=== PATIENT | female | born 1935 | race African-American/Black ===

== ENCOUNTER 2021-07-04 17:26 | Inpatient (IN) ==
[2021-07-04 20:26] LABS: ABG Base Excess -10.2 MMOL/L (-2.5-2.5); ABG HCO3 16.4 MMOL/L (20-26); ABG Oxygen Saturation 97.2 % (95-100); ABG PCO2 21.5 MM HG (35-48); ABG PH 7.393 (7.35-7.45); ABG TCO2 11.7 MMOL/L (23-27)
[2021-07-04] MEDS ORDERED: SODIUM BICARBONATE 50 MEQ/50 ML VIAL IV ONE (20:45)
[2021-07-04] MEDS ORDERED: PHENYLEPHRINE DRIP 40 MG/250 ML PREMIX IV PRN (20:46)
[2021-07-04] MEDS ORDERED: MORPHINE 2 MG/1 ML SYRINGE IV PRN (20:46)
[2021-07-04] MEDS ORDERED: ONDANSETRON 4 MG/2 ML VIAL IV PRN (20:46)
[2021-07-04] MEDS ORDERED: ALBUTEROL 2.5 MG/3 ML NEB RESP TX PRN (20:46)
[2021-07-04] MEDS ORDERED: SODIUM BICARB INJ 150 MEQ in DEXTROSE 5% 1,000 ML IV SCH (21:00)
[2021-07-04] MEDS ORDERED: DEXTROSE 50% 25 GM/50 ML SYRINGE IV PRN (21:06)
[2021-07-04] MEDS ORDERED: GLUCAGON 1 MG VIAL IM PRN (21:06)
[2021-07-04] MEDS: PANTOPRAZOLE 40 MG VIAL IV SCH (21:57)
[2021-07-04] MEDS: HYDROCORTISONE 100 MG VIAL IV SCH (21:57)
[2021-07-04] MEDS: MEROPENEM 500 MG in SODIUM CHLORIDE 0.9% 100 ML IV SCH (21:57)
[2021-07-04] MEDS ORDERED: INSULIN LISPRO 100 UNIT/ML SUBCUT SCH (22:00)
[2021-07-04] MEDS: INSULIN NPH 100 UNIT/ML SUBCUT SCH (22:12)
[2021-07-04] MEDS: AMPICILLIN INJ 500 MG in SODIUM CHLORIDE 0.9% 100 ML IV SCH (22:40)
[2021-07-04] MEDS ORDERED: LEVOFLOXACIN INJ 750 MG/150 ML PREMIX IV SCH (23:00)
[2021-07-05] MEDS: AMPICILLIN INJ 500 MG in SODIUM CHLORIDE 0.9% 100 ML IV SCH ×4 (03:18→21:12)
[2021-07-05] MEDS: INSULIN LISPRO 100 UNIT/ML SUBCUT SCH ×5 (03:47→19:43)
[2021-07-05] MEDS: HYDROCORTISONE 100 MG VIAL IV SCH ×3 (05:20→20:33)
[2021-07-05] MEDS: MEROPENEM 500 MG in SODIUM CHLORIDE 0.9% 100 ML IV SCH ×3 (05:20→20:34)
[2021-07-05 05:22] LABS: Lactic Acid 3.8 MMOL/L (0.4-2.0)
[2021-07-05 05:25] LABS: Alanine Aminotransferase 38 U/L (13-56); Albumin 1.6 G/DL (3.4-5.0); Alkaline Phosphatase 79 U/L (45-117); Aspartate Amino Transferase 46 U/L (0-37); Blood Urea Nitrogen 79 MG/DL (7-18); Calcium 7.5 MG/DL (8.5-10.1); Carbon Dioxide 30 MMOL/L (21-32); Estimated Glom Filtration Rate 10 ML/MIN; Glucose 441 MG/DL (74-106); Osmolality,Calculated 334.4 MOS/KG (273-304); Potassium 3.6 MMOL/L (3.5-5.1); Sodium 147 MMOL/L (136-145); Thyroid Stimulating Hormone 0.137 uIU/ml (0.358-3.74); Total Protein 5.1 G/DL (6.4-8.2)
[2021-07-05 05:42] LABS: Basophils # 0.1 10*3/uL (0.0-0.2); Basophils % 0.7 % (0.0-0.8); Hematocrit 29.3 VOL% (35.7-47.0); Immature Granulocytes % 12.6 %; Immature Granulocytes Absolute 1.89 #; Lymphocytes # 0.3 10*3/uL (1.4-4.0); Lymphocytes % 2.3 % (21.3-54.2); Mean Corpuscular HGB Conc 34.1 GM/DL (32-36); Mean Corpuscular Volume 92.7 FL (87-102); Mean Platelet Volume 10.8 FL (9.6-12.0); Monocytes % 2.9 % (1.7-12.7); Neutrophils % 81.5 % (38.7-73.9); Platelet Count 58 T/CUMM (130-400); Red Blood Count 3.16 MC/CUMM (3.8-5.5); Red Cell Distribution Width 14.7 % (9.3-17.3); White Blood Count 15.1 T/CUMM (4-12)
[2021-07-05 05:49] LABS: Band Neutrophils 43 % (0-10); Lymphocytes 2 % (20-55); Metamyelocytes 15 %; Myelocytes 2 %; Platelet Estimate Decreased; Segmented Neutrophils 37 % (50-85); Total Cells Counted 100
[2021-07-05 05:50] LABS: Anisocytosis 1+; Macrocytosis 1+
[2021-07-05 06:31] LABS: Ammonia < 10 UMOL/L (11-32)
[2021-07-05 09:07] LABS: Calcium 8.4 MG/DL (8.5-10.1); Osmolality,Calculated 319.1 MOS/KG (273-304); Potassium 3.9 MMOL/L (3.5-5.1)
[2021-07-05] MEDS: SODIUM CHLORIDE 0.45% 1,000 ML IV SCH ×2 (09:35→19:55)
[2021-07-05] MEDS: ENOXAPARIN 30 MG/0.3 ML SYRINGE SUBCUT SCH (09:35)
[2021-07-05] MEDS: INSULIN NPH 100 UNIT/ML SUBCUT SCH (16:21)
[2021-07-05] MEDS: PANTOPRAZOLE 40 MG VIAL IV SCH (20:33)
[2021-07-06] MEDS: INSULIN LISPRO 100 UNIT/ML SUBCUT SCH ×7 (00:07→23:23)
[2021-07-06 02:16] LABS: Basophils # 0.1 10*3/uL (0.0-0.2); Basophils % 0.3 % (0.0-0.8); Hematocrit 36.3 VOL% (35.7-47.0); Hemoglobin 11.8 GM/DL (12.0-16.0); Immature Granulocytes % 0.4 %; Immature Granulocytes Absolute 0.09 #; Lymphocytes # 0.4 10*3/uL (1.4-4.0); Mean Corpuscular HGB Conc 32.5 GM/DL (32-36); Mean Platelet Volume 10.7 FL (9.6-12.0); Monocytes % 1.6 % (1.7-12.7); Neutrophils % 95.7 % (38.7-73.9); Red Cell Distribution Width 14.7 % (9.3-17.3)
[2021-07-06 02:17] LABS: Red Blood Count 3.82 MC/CUMM (3.8-5.5); White Blood Count 21.3 T/CUMM (4-12)
[2021-07-06 02:18] LABS: Platelet Count 45 T/CUMM (130-400)
[2021-07-06 02:34] LABS: Albumin 1.9 G/DL (3.4-5.0); Bilirubin,Total 0.6 MG/DL (0.20-1.00); Calcium 8.3 MG/DL (8.5-10.1); Osmolality,Calculated 307.3 MOS/KG (273-304); Potassium 3.7 MMOL/L (3.5-5.1); Total Protein 5.9 G/DL (6.4-8.2)
[2021-07-06 02:41] LABS: Band Neutrophils 9 % (0-10); Lymphocytes 2 % (20-55); Metamyelocytes 3 %; Segmented Neutrophils 85 % (50-85)
[2021-07-06 02:43] LABS: Platelet Estimate Decreased; Total Cells Counted 100
[2021-07-06] MEDS: SODIUM CHLORIDE 0.45% 1,000 ML IV SCH (03:55)
[2021-07-06] MEDS: MEROPENEM 500 MG in SODIUM CHLORIDE 0.9% 100 ML IV SCH ×3 (05:05→21:27)
[2021-07-06] MEDS: AMPICILLIN INJ 500 MG in SODIUM CHLORIDE 0.9% 100 ML IV SCH (05:05)
[2021-07-06] MEDS: HYDROCORTISONE 100 MG VIAL IV SCH ×3 (05:06→21:27)
[2021-07-06] MEDS: ENOXAPARIN 30 MG/0.3 ML SYRINGE SUBCUT SCH (08:57)
[2021-07-06] MEDS: SODIUM CHLORIDE 23.4% CONC INJ 38.5 MEQ in STERILE WATER INJ 1,000 ML IV SCH ×2 (09:30→19:36)
[2021-07-06] MEDS: INSULIN NPH 100 UNIT/ML SUBCUT SCH (16:16)
[2021-07-06] MEDS: PANTOPRAZOLE 40 MG VIAL IV SCH (21:27)
[2021-07-07] MEDS: INSULIN LISPRO 100 UNIT/ML SUBCUT SCH ×5 (03:25→20:29)
[2021-07-07 04:57] LABS: Basophils # 0.2 10*3/uL (0.0-0.2); Basophils % 0.8 % (0.0-0.8); Eosinophils % 0.1 % (0.00-10.9); Hematocrit 35.6 VOL% (35.7-47.0); Hemoglobin 12.7 GM/DL (12.0-16.0); Immature Granulocytes % 1.2 %; Immature Granulocytes Absolute 0.26 #; Lymphocytes # 0.7 10*3/uL (1.4-4.0); Lymphocytes % 3.3 % (21.3-54.2); Mean Corpuscular HGB Conc 35.7 GM/DL (32-36); Mean Corpuscular Volume 93.9 FL (87-102); Neutrophils % 91.6 % (38.7-73.9); Red Blood Count 3.79 MC/CUMM (3.8-5.5); Red Cell Distribution Width 14.6 % (9.3-17.3); White Blood Count 21.2 T/CUMM (4-12)
[2021-07-07 05:01] LABS: Platelet Count 38 T/CUMM (130-400)
[2021-07-07] MEDS: HYDROCORTISONE 100 MG VIAL IV SCH (05:06)
[2021-07-07] MEDS: MEROPENEM 500 MG in SODIUM CHLORIDE 0.9% 100 ML IV SCH ×3 (05:06→20:31)
[2021-07-07 05:18] LABS: Band Neutrophils 4 % (0-10); Lymphocytes 3 % (20-55); Platelet Estimate Decreased; Segmented Neutrophils 90 % (50-85); Total Cells Counted 100
[2021-07-07] MEDS: SODIUM CHLORIDE 23.4% CONC INJ 38.5 MEQ in STERILE WATER INJ 1,000 ML IV SCH ×2 (05:59→15:54)
[2021-07-07 06:20] LABS: Bilirubin,Total 0.9 MG/DL (0.20-1.00); Calcium 8.9 MG/DL (8.5-10.1); Osmolality,Calculated 296.1 MOS/KG (273-304); Potassium 4.1 MMOL/L (3.5-5.1)
[2021-07-07] MEDS: ENOXAPARIN 30 MG/0.3 ML SYRINGE SUBCUT SCH (08:43)
[2021-07-07] MEDS ORDERED: HYDROCORTISONE 100 MG VIAL IV SCH (13:00)
[2021-07-07] MEDS: INSULIN NPH 100 UNIT/ML SUBCUT SCH (16:48)
[2021-07-07] MEDS: PANTOPRAZOLE 40 MG VIAL IV SCH (20:31)
[2021-07-08] MEDS: INSULIN LISPRO 100 UNIT/ML SUBCUT SCH ×6 (00:46→20:56)
[2021-07-08] MEDS: SODIUM CHLORIDE 23.4% CONC INJ 38.5 MEQ in STERILE WATER INJ 1,000 ML IV SCH ×3 (01:12→22:29)
[2021-07-08] MEDS: MEROPENEM 500 MG in SODIUM CHLORIDE 0.9% 100 ML IV SCH ×2 (04:32→15:07)
[2021-07-08 05:15] LABS: Basophils % 0.2 % (0.0-0.8); Hematocrit 32.9 VOL% (35.7-47.0); Hemoglobin 11.5 GM/DL (12.0-16.0); Immature Granulocytes % 1.8 %; Immature Granulocytes Absolute 0.32 #; Lymphocytes # 1.4 10*3/uL (1.4-4.0); Lymphocytes % 7.7 % (21.3-54.2); Mean Corpuscular Volume 93.7 FL (87-102); Monocytes % 6.1 % (1.7-12.7); NRBC # 0.02 10*3/uL; Neutrophils % 84.2 % (38.7-73.9); Red Blood Count 3.51 MC/CUMM (3.8-5.5); Red Cell Distribution Width 14.6 % (9.3-17.3); White Blood Count 17.6 T/CUMM (4-12)
[2021-07-08 05:16] LABS: Albumin 1.5 G/DL (3.4-5.0); Bilirubin,Total 0.7 MG/DL (0.20-1.00); Calcium 8.5 MG/DL (8.5-10.1); Osmolality,Calculated 295.3 MOS/KG (273-304); Platelet Count 36 T/CUMM (130-400); Potassium 3.6 MMOL/L (3.5-5.1); Total Protein 5.1 G/DL (6.4-8.2)
[2021-07-08 06:56] LABS: Band Neutrophils 3 % (0-10); Lymphocytes 9 % (20-55); Metamyelocytes 1 %; Segmented Neutrophils 87 % (50-85); Total Cells Counted 100
[2021-07-08 06:57] LABS: Atypical Lymphocytes Few; Platelet Estimate Decreased
[2021-07-08] MEDS: predniSONE 20 MG TABLET PO SCH (08:47)
[2021-07-08] MEDS: cefTRIAXone 2,000 MG in SODIUM CHLORIDE 0.9% 100 ML IV SCH (16:07)
[2021-07-08] MEDS: INSULIN NPH 100 UNIT/ML SUBCUT SCH (17:20)
[2021-07-08] MEDS: TOLTERODINE 2 MG TABLET PO SCH (20:57)
[2021-07-08] MEDS: PANTOPRAZOLE 40 MG VIAL IV SCH (20:57)
[2021-07-09] MEDS: INSULIN LISPRO 100 UNIT/ML SUBCUT SCH ×6 (00:29→20:54)
[2021-07-09 03:34] LABS: Basophils % 0.2 % (0.0-0.8); Eosinophils % 0.1 % (0.00-10.9); Hematocrit 32.5 VOL% (35.7-47.0); Hemoglobin 11.5 GM/DL (12.0-16.0); Immature Granulocytes Absolute 0.47 #; Lymphocytes # 2.1 10*3/uL (1.4-4.0); Lymphocytes % 13.3 % (21.3-54.2); Mean Corpuscular HGB Conc 35.4 GM/DL (32-36); Mean Corpuscular Volume 97.6 FL (87-102); Monocytes % 8.8 % (1.7-12.7); Neutrophils % 74.6 % (38.7-73.9); Red Blood Count 3.33 MC/CUMM (3.8-5.5); Red Cell Distribution Width 16.1 % (9.3-17.3); White Blood Count 15.8 T/CUMM (4-12)
[2021-07-09 03:45] LABS: Albumin 1.5 G/DL (3.4-5.0); Calcium 8.4 MG/DL (8.5-10.1); Osmolality,Calculated 283.5 MOS/KG (273-304); Potassium 4.1 MMOL/L (3.5-5.1); Total Protein 5.2 G/DL (6.4-8.2)
[2021-07-09 03:45] LABS: Platelet Count 30 T/CUMM (130-400)
[2021-07-09] MEDS: SODIUM CHLORIDE 23.4% CONC INJ 38.5 MEQ in STERILE WATER INJ 1,000 ML IV SCH ×2 (08:32→18:06)
[2021-07-09] MEDS: TOLTERODINE 2 MG TABLET PO SCH ×2 (08:33→20:53)
[2021-07-09] MEDS: predniSONE 20 MG TABLET PO SCH (08:33)
[2021-07-09 10:12] LABS: Lymphocytes 10 % (20-55); Macrocytosis Slight; Metamyelocytes 2 %; Platelet Estimate Decreased; Segmented Neutrophils 85 % (50-85); Total Cells Counted 100
[2021-07-09] MEDS: cefTRIAXone 2,000 MG in SODIUM CHLORIDE 0.9% 100 ML IV SCH (16:55)
[2021-07-09] MEDS: INSULIN NPH 100 UNIT/ML SUBCUT SCH (16:55)
[2021-07-09] MEDS: PANTOPRAZOLE 40 MG VIAL IV SCH (20:57)
[2021-07-10] MEDS: SODIUM CHLORIDE 23.4% CONC INJ 38.5 MEQ in STERILE WATER INJ 1,000 ML IV SCH ×4 (03:23→22:44)
[2021-07-10 06:32] LABS: Basophils # 0.1 10*3/uL (0.0-0.2); Basophils % 0.2 % (0.0-0.8); Eosinophils # 0.1 10*3/uL (0.0-0.87); Eosinophils % 0.3 % (0.00-10.9); Hematocrit 31.1 VOL% (35.7-47.0); Hemoglobin 10.5 GM/DL (12.0-16.0); Immature Granulocytes % 5.2 %; Immature Granulocytes Absolute 1.26 #; Lymphocytes # 2.7 10*3/uL (1.4-4.0); Lymphocytes % 11.1 % (21.3-54.2); Mean Corpuscular HGB Conc 33.8 GM/DL (32-36); Mean Corpuscular Volume 94.2 FL (87-102); Mean Platelet Volume 14.6 FL (9.6-12.0); Monocytes % 7.6 % (1.7-12.7); Neutrophils % 75.6 % (38.7-73.9); Platelet Count 42 T/CUMM (130-400); Red Cell Distribution Width 14.8 % (9.3-17.3); White Blood Count 24.3 T/CUMM (4-12)
[2021-07-10 06:54] LABS: Albumin 1.4 G/DL (3.4-5.0); Bilirubin,Total 0.8 MG/DL (0.20-1.00); Calcium 8.3 MG/DL (8.5-10.1); Osmolality,Calculated 283.5 MOS/KG (273-304); Potassium 3.8 MMOL/L (3.5-5.1); Total Protein 4.9 G/DL (6.4-8.2)
[2021-07-10 06:57] LABS: Band Neutrophils 5 % (0-10); Hypochromia 1+; Lymphocytes 10 % (20-55); Segmented Neutrophils 77 % (50-85); Total Cells Counted 100
[2021-07-10 06:58] LABS: Microcytosis Slight; Platelet Estimate Decreased; Target Cells Slight
[2021-07-10] MEDS: INSULIN LISPRO 100 UNIT/ML SUBCUT SCH ×4 (07:11→20:35)
[2021-07-10] MEDS: predniSONE 20 MG TABLET PO SCH (08:09)
[2021-07-10] MEDS: TOLTERODINE 2 MG TABLET PO SCH ×2 (08:09→20:36)
[2021-07-10] MEDS: PANTOPRAZOLE 40 MG TABLET PO SCH (09:56)
[2021-07-10] MEDS: cefTRIAXone 2,000 MG in SODIUM CHLORIDE 0.9% 100 ML IV SCH (16:03)
[2021-07-10] MEDS: INSULIN NPH 100 UNIT/ML SUBCUT SCH (17:36)
[2021-07-11] MEDS: SODIUM CHLORIDE 23.4% CONC INJ 38.5 MEQ in STERILE WATER INJ 1,000 ML IV SCH ×5 (03:14→22:12)
[2021-07-11 05:04] LABS: Basophils % 0.2 % (0.0-0.8); Eosinophils # 0.1 10*3/uL (0.0-0.87); Eosinophils % 0.3 % (0.00-10.9); Hematocrit 26.9 VOL% (35.7-47.0); Hemoglobin 9.2 GM/DL (12.0-16.0); Immature Granulocytes % 5.8 %; Immature Granulocytes Absolute 1.35 #; Lymphocytes # 2.9 10*3/uL (1.4-4.0); Lymphocytes % 12.3 % (21.3-54.2); Mean Corpuscular HGB Conc 34.2 GM/DL (32-36); Mean Corpuscular Volume 91.5 FL (87-102); Mean Platelet Volume 12.9 FL (9.6-12.0); Monocytes % 5.2 % (1.7-12.7); Neutrophils % 76.2 % (38.7-73.9); Platelet Count 79 T/CUMM (130-400); Red Blood Count 2.94 MC/CUMM (3.8-5.5); Red Cell Distribution Width 14.7 % (9.3-17.3); White Blood Count 23.4 T/CUMM (4-12)
[2021-07-11 05:29] LABS: Band Neutrophils 2 % (0-10); Hypochromia 1+; Lymphocytes 17 % (20-55); Microcytosis 1+; Platelet Estimate Decreased; Segmented Neutrophils 77 % (50-85); Total Cells Counted 100
[2021-07-11 05:30] LABS: Albumin 1.3 G/DL (3.4-5.0); Bilirubin,Total 1.5 MG/DL (0.20-1.00); Calcium 7.8 MG/DL (8.5-10.1); Osmolality,Calculated 286.7 MOS/KG (273-304); Potassium 3.8 MMOL/L (3.5-5.1); Total Protein 4.8 G/DL (6.4-8.2)
[2021-07-11] MEDS: INSULIN LISPRO 100 UNIT/ML SUBCUT SCH ×4 (08:40→20:49)
[2021-07-11] MEDS: predniSONE 20 MG TABLET PO SCH (08:41)
[2021-07-11] MEDS: TOLTERODINE 2 MG TABLET PO SCH ×2 (08:41→20:52)
[2021-07-11] MEDS: PANTOPRAZOLE 40 MG TABLET PO SCH (08:41)
[2021-07-11] MEDS: cefTRIAXone 2,000 MG in SODIUM CHLORIDE 0.9% 100 ML IV SCH (16:48)
[2021-07-11] MEDS: INSULIN NPH 100 UNIT/ML SUBCUT SCH (16:56)
[2021-07-12 04:28] LABS: Basophils # 0.1 10*3/uL (0.0-0.2); Basophils % 0.2 % (0.0-0.8); Eosinophils # 0.1 10*3/uL (0.0-0.87); Eosinophils % 0.4 % (0.00-10.9); Hematocrit 26.6 VOL% (35.7-47.0); Hemoglobin 8.9 GM/DL (12.0-16.0); Lymphocytes # 3.8 10*3/uL (1.4-4.0); Lymphocytes % 16.7 % (21.3-54.2); Mean Corpuscular HGB Conc 33.5 GM/DL (32-36); Mean Corpuscular Volume 92.7 FL (87-102); Mean Platelet Volume 12.2 FL (9.6-12.0); Monocytes % 6.3 % (1.7-12.7); Neutrophils % 69.4 % (38.7-73.9); Platelet Count 169 T/CUMM (130-400); Red Blood Count 2.87 MC/CUMM (3.8-5.5); Red Cell Distribution Width 15.2 % (9.3-17.3); White Blood Count 22.8 T/CUMM (4-12)
[2021-07-12 04:47] LABS: Band Neutrophils 1 % (0-10); Hypochromia 1+; Lymphocytes 17 % (20-55); Microcytosis 1+; Segmented Neutrophils 76 % (50-85); Total Cells Counted 100
[2021-07-12 04:48] LABS: Polychromasia Slight; Target Cells Slight
[2021-07-12 04:50] LABS: Albumin 1.5 G/DL (3.4-5.0); Bilirubin,Total 0.4 MG/DL (0.20-1.00); Calcium 8.3 MG/DL (8.5-10.1); Osmolality,Calculated 283.8 MOS/KG (273-304); Potassium 4.1 MMOL/L (3.5-5.1); Total Protein 5.1 G/DL (6.4-8.2)
[2021-07-12] MEDS: SODIUM CHLORIDE 23.4% CONC INJ 38.5 MEQ in STERILE WATER INJ 1,000 ML IV SCH (05:00)
[2021-07-12] MEDS: INSULIN LISPRO 100 UNIT/ML SUBCUT SCH ×4 (07:48→20:34)
[2021-07-12] MEDS: PANTOPRAZOLE 40 MG TABLET PO SCH (08:22)
[2021-07-12] MEDS: TOLTERODINE 2 MG TABLET PO SCH ×2 (08:22→20:34)
[2021-07-12] MEDS: ENOXAPARIN 40 MG/0.4 ML SYRINGE SUBCUT SCH (08:26)
[2021-07-12] MEDS: INSULIN NPH 100 UNIT/ML SUBCUT SCH (16:24)
[2021-07-12] MEDS: cefTRIAXone 2,000 MG in SODIUM CHLORIDE 0.9% 100 ML IV SCH (16:24)
[2021-07-13 05:21] LABS: Basophils # 0.1 10*3/uL (0.0-0.2); Basophils % 0.2 % (0.0-0.8); Eosinophils % 0.1 % (0.00-10.9); Hematocrit 27.9 VOL% (35.7-47.0); Hemoglobin 9.2 GM/DL (12.0-16.0); Immature Granulocytes % 6.1 %; Immature Granulocytes Absolute 1.55 #; Lymphocytes # 2.3 10*3/uL (1.4-4.0); Lymphocytes % 9.1 % (21.3-54.2); Mean Corpuscular Volume 93.9 FL (87-102); Mean Platelet Volume 11.2 FL (9.6-12.0); Monocytes % 6.8 % (1.7-12.7); Neutrophils % 77.7 % (38.7-73.9); Platelet Count 214 T/CUMM (130-400); Red Blood Count 2.97 MC/CUMM (3.8-5.5); Red Cell Distribution Width 15.4 % (9.3-17.3); White Blood Count 25.5 T/CUMM (4-12)
[2021-07-13 05:45] LABS: Albumin 1.6 G/DL (3.4-5.0); Bilirubin,Total 1.4 MG/DL (0.20-1.00); Calcium 8.3 MG/DL (8.5-10.1); Potassium 5.3 MMOL/L (3.5-5.1); Total Protein 5.6 G/DL (6.4-8.2)
[2021-07-13 05:55] LABS: Band Neutrophils 1 % (0-10); Hypochromia 1+; Lymphocytes 7 % (20-55); Microcytosis 1+; Platelet Estimate Adequate; Segmented Neutrophils 89 % (50-85); Total Cells Counted 100
[2021-07-13] MEDS: ENOXAPARIN 40 MG/0.4 ML SYRINGE SUBCUT SCH (09:22)
[2021-07-13] MEDS: TOLTERODINE 2 MG TABLET PO SCH ×2 (09:23→21:16)
[2021-07-13] MEDS: PANTOPRAZOLE 40 MG TABLET PO SCH (09:23)
[2021-07-13] MEDS: INSULIN LISPRO 100 UNIT/ML SUBCUT SCH ×4 (09:27→21:16)
[2021-07-13] MEDS ORDERED: SODIUM POLYSTYRENE SULFATE 15 GM/60 ML BOTTLE PO STA (13:06)
[2021-07-13] MEDS: INSULIN NPH 100 UNIT/ML SUBCUT SCH (16:22)
[2021-07-13] MEDS: cefTRIAXone 2,000 MG in SODIUM CHLORIDE 0.9% 100 ML IV SCH (16:23)
[2021-07-14 08:33] LABS: Basophils % 0.1 % (0.0-0.8); Eosinophils % 0.2 % (0.00-10.9); Hematocrit 25.8 VOL% (35.7-47.0); Hemoglobin 8.6 GM/DL (12.0-16.0); Lymphocytes # 1.5 10*3/uL (1.4-4.0); Lymphocytes % 9.8 % (21.3-54.2); Mean Corpuscular HGB Conc 33.3 GM/DL (32-36); Mean Corpuscular Volume 93.5 FL (87-102); Mean Platelet Volume 10.7 FL (9.6-12.0); Monocytes % 5.8 % (1.7-12.7); Neutrophils % 82.1 % (38.7-73.9); Platelet Count 257 T/CUMM (130-400); Red Blood Count 2.76 MC/CUMM (3.8-5.5); Red Cell Distribution Width 15.9 % (9.3-17.3); White Blood Count 14.9 T/CUMM (4-12)
[2021-07-14 08:55] LABS: Albumin 1.7 G/DL (3.4-5.0); Bilirubin,Total 0.4 MG/DL (0.20-1.00); Calcium 8.3 MG/DL (8.5-10.1); Osmolality,Calculated 292.5 MOS/KG (273-304)
[2021-07-14 09:04] LABS: Potassium 6.3 MMOL/L (3.5-5.1)
[2021-07-14] MEDS: PANTOPRAZOLE 40 MG TABLET PO SCH (09:44)
[2021-07-14] MEDS: TOLTERODINE 2 MG TABLET PO SCH (09:44)
[2021-07-14] MEDS: INSULIN LISPRO 100 UNIT/ML SUBCUT SCH ×4 (09:44→22:22)
[2021-07-14] MEDS: ENOXAPARIN 40 MG/0.4 ML SYRINGE SUBCUT SCH (09:45)
[2021-07-14] MEDS: cefTRIAXone 2,000 MG in SODIUM CHLORIDE 0.9% 100 ML IV SCH (09:45)
[2021-07-14] MEDS: TAMSULOSIN 0.4 MG CAPSULE PO SCH (14:28)
[2021-07-14] MEDS: SODIUM CHLORIDE 0.9% 1,000 ML IV SCH ×2 (14:37→22:22)
[2021-07-14] MEDS: INSULIN NPH 100 UNIT/ML SUBCUT SCH (17:41)
[2021-07-15] MEDS: SODIUM CHLORIDE 0.9% 1,000 ML IV SCH ×2 (05:03→22:32)
[2021-07-15 06:53] LABS: Basophils % 0.1 % (0.0-0.8); Eosinophils % 0.2 % (0.00-10.9); Hematocrit 25.3 VOL% (35.7-47.0); Hemoglobin 8.2 GM/DL (12.0-16.0); Immature Granulocytes % 1.7 %; Immature Granulocytes Absolute 0.17 #; Lymphocytes # 1.5 10*3/uL (1.4-4.0); Lymphocytes % 14.3 % (21.3-54.2); Mean Corpuscular HGB Conc 32.4 GM/DL (32-36); Mean Corpuscular Volume 95.8 FL (87-102); Mean Platelet Volume 10.8 FL (9.6-12.0); Monocytes % 6.9 % (1.7-12.7); Neutrophils % 76.8 % (38.7-73.9); Platelet Count 310 T/CUMM (130-400); Red Blood Count 2.64 MC/CUMM (3.8-5.5); Red Cell Distribution Width 15.9 % (9.3-17.3); White Blood Count 10.2 T/CUMM (4-12)
[2021-07-15 07:17] LABS: Albumin 1.5 G/DL (3.4-5.0); Bilirubin,Total 0.7 MG/DL (0.20-1.00); Calcium 8.2 MG/DL (8.5-10.1); Osmolality,Calculated 298.7 MOS/KG (273-304); Potassium 4.2 MMOL/L (3.5-5.1); Total Protein 5.6 G/DL (6.4-8.2)
[2021-07-15] MEDS: INSULIN LISPRO 100 UNIT/ML SUBCUT SCH ×4 (07:44→22:32)
[2021-07-15] MEDS: cefTRIAXone 2,000 MG in SODIUM CHLORIDE 0.9% 100 ML IV SCH (09:07)
[2021-07-15] MEDS: ENOXAPARIN 40 MG/0.4 ML SYRINGE SUBCUT SCH (09:08)
[2021-07-15] MEDS: TAMSULOSIN 0.4 MG CAPSULE PO SCH (09:08)
[2021-07-15] MEDS: PANTOPRAZOLE 40 MG TABLET PO SCH (09:08)
[2021-07-15] MEDS: CEFUROXIME 500 MG TABLET PO SCH ×2 (12:36→22:31)
[2021-07-15] MEDS: INSULIN NPH 100 UNIT/ML SUBCUT SCH (16:34)
[2021-07-16] MEDS: INSULIN LISPRO 100 UNIT/ML SUBCUT SCH ×4 (07:53→21:01)
[2021-07-16] MEDS: TAMSULOSIN 0.4 MG CAPSULE PO SCH (09:05)
[2021-07-16] MEDS: ENOXAPARIN 40 MG/0.4 ML SYRINGE SUBCUT SCH (09:05)
[2021-07-16] MEDS: CEFUROXIME 500 MG TABLET PO SCH ×2 (09:05→21:00)
[2021-07-16] MEDS: PANTOPRAZOLE 40 MG TABLET PO SCH (09:05)
[2021-07-16 10:20] LABS: Calcium 8.2 MG/DL (8.5-10.1); Osmolality,Calculated 292.7 MOS/KG (273-304)
[2021-07-16] MEDS: INSULIN NPH 100 UNIT/ML SUBCUT SCH (16:32)
[2021-07-17 05:32] LABS: Basophils % 0.1 % (0.0-0.8); Eosinophils # 0.1 10*3/uL (0.0-0.87); Hematocrit 22.9 VOL% (35.7-47.0); Hemoglobin 7.2 GM/DL (12.0-16.0); Immature Granulocytes % 1.5 %; Immature Granulocytes Absolute 0.12 #; Lymphocytes # 1.5 10*3/uL (1.4-4.0); Lymphocytes % 18.2 % (21.3-54.2); Mean Corpuscular HGB Conc 31.4 GM/DL (32-36); Mean Corpuscular Volume 98.3 FL (87-102); Mean Platelet Volume 9.8 FL (9.6-12.0); Monocytes % 8.4 % (1.7-12.7); Neutrophils % 70.8 % (38.7-73.9); Platelet Count 363 T/CUMM (130-400); Red Blood Count 2.33 MC/CUMM (3.8-5.5); Red Cell Distribution Width 16.1 % (9.3-17.3); White Blood Count 8.1 T/CUMM (4-12)
[2021-07-17 05:59] LABS: Calcium 7.9 MG/DL (8.5-10.1); Osmolality,Calculated 291.7 MOS/KG (273-304); Potassium 4.4 MMOL/L (3.5-5.1)
[2021-07-17 06:16] VITALS: BP 118/61
[2021-07-17 08:16] LABS: Basophils % 0.2 % (0.0-0.8); Eosinophils # 0.1 10*3/uL (0.0-0.87); Eosinophils % 0.6 % (0.00-10.9); Hematocrit 24.3 VOL% (35.7-47.0); Hemoglobin 7.7 GM/DL (12.0-16.0); Immature Granulocytes % 1.1 %; Immature Granulocytes Absolute 0.09 #; Lymphocytes # 1.4 10*3/uL (1.4-4.0); Lymphocytes % 16.7 % (21.3-54.2); Mean Corpuscular HGB Conc 31.7 GM/DL (32-36); Mean Platelet Volume 9.7 FL (9.6-12.0); Monocytes % 7.7 % (1.7-12.7); Neutrophils % 73.7 % (38.7-73.9); Platelet Count 365 T/CUMM (130-400); Red Blood Count 2.48 MC/CUMM (3.8-5.5); White Blood Count 8.5 T/CUMM (4-12)
[2021-07-17 08:34] LABS: % Iron Saturation 20.6 % (18-50); Ferritin 351.7 ng/mL (8-252)
[2021-07-17 08:50] LABS: Folate 14.41 NG/ML (5.38-24.0); Vitamin B12 667 PG/ML (211-911)
[2021-07-17] MEDS: INSULIN LISPRO 100 UNIT/ML SUBCUT SCH ×2 (09:28→13:45)
[2021-07-17] MEDS: CEFUROXIME 500 MG TABLET PO SCH (09:29)
[2021-07-17] MEDS: TAMSULOSIN 0.4 MG CAPSULE PO SCH (09:29)
[2021-07-17] MEDS: PANTOPRAZOLE 40 MG TABLET PO SCH (09:29)
[2021-07-17] MEDS: ENOXAPARIN 40 MG/0.4 ML SYRINGE SUBCUT SCH (09:29)
[2021-07-17 09:30] LABS: Sedimentation Rate-Westergren 124 MM/HR (0-30)
[2021-07-18 08:19] LABS: Hemoglobin A1 (Alkaline) 97.4 % (96.5-98.5); Hemoglobin A2 (Alkaline) 2.6 % (1.5-3.5)
== END 2021-07-17 13:45 | DRG 871 ==
LOC: SUATTDRO 19:04 → N.ICU 19:04 → N.5E 07-13 13:26
PROVIDERS: ADMIT Internal Medicine; ATTEND Internal Medicine